=== PATIENT | male | born 2000 | race Two or more races ===

== ENCOUNTER 2024-01-30 09:53 | Emergency (ER) | payer MEDICAID ==
[~2024-01-30] VITALS: Ht 182.9 cm; Wt 120.0 kg
[2024-01-30 10:01] VITALS: BP 166/78; PULSE 110; RESP 18; TEMP 97.1; O2SAT 97
[2024-01-30] MEDS ORDERED: ketorolac trometh 30MG/ML vial 30 MG/ML VIAL IM ONE (12:10)
[2024-01-30] MEDS: acetaminophen 325mg tablet PO ONE (12:24)
== END 2024-01-30 12:37 | disposition home or self-care (01) ==
LOC: ER 09:54
DX: M54.50 Low back pain, unspecified (principal); M79.605 Pain in left leg; R20.0 Anesthesia of skin
CPT/HCPCS: 99282